=== PATIENT | female | born 1980 | race African-American/Black ===

== ENCOUNTER 2017-07-23 01:07 | Emergency (ER) | payer SELFPAY ==
[~2017-07-23] VITALS: Ht 177.8 cm; Wt 89.0 kg
[2017-07-23 03:16] LABS: CHLORIDE 106 mEq/L (98-107)
[2017-07-23 03:20] LABS: BASOPHILS % 0.7 % (0.0-2.0); EOSINOPHILS % 1.1 % (0.0-5.0); HEMATOCRIT. 38.7 % (36.0-48.0); HEMOGLOBIN. 13.5 g/dL (12.0-16.0); LYMPHOCYTES % 22.2 % (20.0-50.0); MEAN CORPUSCULAR HEMOGLOBIN 30.6 pg (28.0-32.0); MEAN CORPUSCULAR VOLUME 87.4 fL (81.0-99.0); MEAN PLATELET VOLUME 6.8 fl (7.4-10.4); MONOCYTES % 10.2 % (2.0-8.0); NEUTROPHILS % 65.8 % (40.0-76.0); PLATELET 336 x1000/uL (130-400); RED BLOOD CELL COUNT 4.43 mill/uL (4.2-5.4); RED CELL DISTRIBUTION WIDTH 13.9 % (11.6-14.6)
[2017-07-23 03:21] LABS: PROTHROMBIN TIME 10.7 sec (9.4-11.6)
[2017-07-23] MEDS ORDERED: METHYLPREDNISOLONE SOD SUCC 125 MG/2 ML VIAL IM ONE (04:15)
[2017-07-23 05:07] VITALS: BP 132/74
== END 2017-07-23 05:21 | disposition home or self-care (01) ==
LOC: ER 01:07
DX: L03.115 Cellulitis of right lower limb (principal); F12.10 Cannabis abuse, uncomplicated; F17.200 Nicotine dependence, unspecified, uncomplicated; Z86.14 Personal history of Methicillin resistant Staphylococcus aureus infection
CPT/HCPCS: 36415; 80053; 81025; 83605; 85025; 85610; 85651; 96372; 99284; J2930; Z7610

== ENCOUNTER 2017-09-28 18:48 | Emergency (ER) | payer SELFPAY ==
[~2017-09-28] VITALS: Ht 177.8 cm; Wt 84.9 kg
[2017-09-28 21:14] VITALS: BP 141/82
== END 2017-09-29 03:15 | disposition home or self-care (01) ==
LOC: ER 09-29 03:14
DX: L30.9 Dermatitis, unspecified (principal); L29.9 Pruritus, unspecified; R21 Rash and other nonspecific skin eruption; F12.10 Cannabis abuse, uncomplicated; F17.200 Nicotine dependence, unspecified, uncomplicated
CPT/HCPCS: 99283; Z7610

== ENCOUNTER 2017-10-30 22:03 | Emergency (ER) | payer SELFPAY ==
[~2017-10-30] VITALS: Ht 177.8 cm; Wt 91.0 kg
[2017-10-31 05:03] VITALS: BP 166/78
== END 2017-10-31 05:03 | disposition home or self-care (01) ==
LOC: ER 22:03
DX: L20.9 Atopic dermatitis, unspecified (principal); F17.200 Nicotine dependence, unspecified, uncomplicated; F12.10 Cannabis abuse, uncomplicated
CPT/HCPCS: 99283